=== PATIENT | female | born 1940 | race Caucasian/White ===

== ENCOUNTER 2016-12-16 11:58 | Emergency (ER) | payer MEDICARE ==
[2016-12-16 12:07] VITALS: RESP 18
[2016-12-16] MEDS ORDERED: Sodium Chloride 0.9% 1,000 ML IV ONE (13:09)
[2016-12-16] MEDS ORDERED: Iohexol 240 (50 ml) PO STA (13:09)
[2016-12-16] MEDS ORDERED: Tetracaine 0.5% Ophth 2 ML BOTTLE OD STA (13:11)
--- NOTE | 2016-12-16 13:12 | C.PDOC ---
History Of Present Illness A 76 year old female, whose past medical history includes anemia, gastritis, gall bladder disease, hypertension, hypothyroidism, whose past surgical history includes cholecystectomy (4-5 years ago), presents to the emergency department for left lower quadrant pain and swelling that has been intermittent for last 4 months, but has worsened last night. The patient also complains of right eye redness and itchy discomfort, which began yesterday, but has worsened in redness today. The patient denies any nausea, vomiting, diarrhea, fever, dysuria , or any other complaints at this time. Time Seen by Provider: 12/16/16 12:44 Chief Complaint (Nursing): Abdominal Pain History Per: Patient History/Exam Limitations: no limitations Onset/Duration Of Symptoms: Days (x yesterday ) Current Symptoms Are (Timing): Still Present Location Of Pain/Discomfort: LLQ Associated Symptoms: denies: Nausea, Vomiting, Diarrhea, Urinary Symptoms Past Medical History Reviewed: Historical Data, Nursing Documentation, Vital Signs Vital Signs: Last Vital Signs Temp 97.6 F 12/16/16 18:33 Pulse 79 12/16/16 18:33 Resp 18 12/16/16 18:33 BP 147/78 12/16/16 18:33 Pulse Ox 98 12/16/16 19:05 - Medical History PMH: Anemia, Gastritis, Gall Bladder Disease, HTN, Hypothyroidism Denies: Chronic Kidney Disease Surgical History: Cholecystectomy (5 years ago) Family History: States: Unknown Family Hx - Social History Hx Tobacco Use: No Hx Alcohol Use: No Hx Substance Use: No - Immunization History Hx Tetanus Toxoid Vaccination: No Hx Influenza Vaccination: No Hx Pneumococcal Vaccination: No Review Of Systems Except As Marked, All Systems Reviewed And Found Negative. Constitutional: Negative for: Fever Eyes: Positive for: Redness (right eye ). Negative for: Pain, Vision Change, Conjunctivae Inflammation, Eyelid Inflammation Gastrointestinal: Positive for: Abdominal Pain (LLQ pain ). Negative for: Nausea, Vomiting, Diarrhea Genitourinary: Negative for: Dysuria Physical Exam - Physical Exam Appears: Well, Non-toxic, No Acute Distress Skin: Normal Color, Warm, Dry Head: Atraumatic, Normacephalic Eye(s): bilateral: Normal Inspection (pressures L:17, right 18. ), PERRL, EOMI, right: Other (redness) Ear(s): Bilateral: Normal Nose: Normal Oral Mucosa: Moist Tongue: Normal Appearing Lips: Normal Appearing Neck: Normal, Normal ROM Cardiovascular: Rhythm Regular Respiratory: Normal Breath Sounds Gastrointestinal/Abdominal: Normal Exam, Tenderness (mild tenderness to the left lower quadrant ) Back: Normal Inspection Extremity: Normal ROM Neurological/Psych: Oriented x3, Normal Speech, Normal Cognition ED Course And Treatment - Laboratory Results Result Diagrams: 12/16/16 13:21 12/16/16 13:21 Lab Interpretation: No Acute Changes O2 Sat by Pulse Oximetry: 98 Pulse Ox Interpretation: Normal - CT Scan/US Abdominal CT Other Rad Studies (CT/US): Read By Radiologist, Radiology Report Reviewed CT/US Interpretation: Impression: No evidence of mass lesion in the large bowel. No evidence of actue pathology in the abdomen and pelvis. Reassessment Condition: Improved (on re-evaluation abdominal pain resolved) Medical Decision Making Medical Decision Making: Impression: A 76 year old female with abdominal pain. Treatment Plan: -- ABD & PELVIS CT -- Labs -- Iohexol, Pepcid, IV Fluids, Tateacaine, Acetaminophen -- Urinalysis CT normal, pain resolved, f/u pmd and human resources representative Disposition Counseled Patient/Family Regarding: Studies Performed, Diagnosis, Need For Followup, Rx Given - Disposition Referrals: Naveed Love MD [Staff Provider] - Non [facility] Provider, [Non-Staff] - Disposition: HOME/ ROUTINE Disposition Time: 18:08 Condition: STABLE Additional Instructions: FOLLOW UP WITH YOUR PMD AND KETTLE FRY COOK OPERATOR ON SUNDAY. TAKE TYLENOL 500 MG EVERY 4-6 HRS NEEDED FOR PAIN. IF SYMPTOMS GET WORSE OR ANY NEW CONCERNING SYMPTOMS DEVELOP RETURN TO ED. Prescriptions: Ciprofloxacin 0.3% [Ciloxan 0.3% Ophth SOLN] 2 drop RIGHTEYE Q4H #1 bottle Instructions: Abdominal Pain (ED), Conjunctivitis (ED) Forms: [facility] (Maori), General Discharge Instructions - Clinical Impression Clinical Impression: Conjunctivitis, Abdominal pain - Scribe Statement The provider has reviewed the documentation as recorded by the Scribe Abril Chester All medical record entries made by the Scribe were at my direction and personally dictated by me. I have reviewed the chart and agree that the record accurately reflects my personal performance of the history, physical exam, medical decision making, and the department course for this patient. I have also personally directed, reviewed, and agree with the discharge instructions and disposition.
[2016-12-16 13:25] LABS: BASO % 0.6 % (0.0-2.0); EOS # 0.1 K/uL (0.0-0.7); EOS % 1.7 % (0.0-4.0); LYMPH % 26.6 % (20.0-40.0); MEAN CORPUSCULAR HGB CONC 33.9 g/dL (33.0-37.0); MEAN PLATELET VOLUME 7.6 fL (7.2-11.7); MONO # 0.8 K/uL (0.0-0.8); MONO % 10.1 % (0.0-10.0); NRBC % 0.1 % (0.0-2.0); RED CELL DISTRIBUTION WIDTH 14.1 % (11.5-14.5); WHITE BLOOD COUNT 7.6 K/uL (4.8-10.8)
[2016-12-16 13:27] LABS: MEAN CELL VOLUME 88.5 fL (81.0-99.0)
[2016-12-16] MEDS ORDERED: Sodium Chloride 0.9% 1,000 ML ONE (13:30)
[2016-12-16] MEDS ORDERED: Iohexol 240 (50 ml) ONE (13:34)
[2016-12-16 13:35] LABS: CHLORIDE 102 mmol/L (98-107); POTASSIUM 3.8 mmol/L (3.6-5.2); SODIUM 138 mmol/L (132-148)
[2016-12-16 13:37] LABS: GFR AFRICAN-AMERICAN > 60
[2016-12-16 13:38] LABS: ALKALINE PHOSPHATASE 68 U/L (38-126); ALT/SGPT 32 U/L (9-52); AST/SGOT 25 U/L (14-36); BILIRUBIN,TOTAL 0.7 mg/dL (0.2-1.3); BLOOD UREA NITROGEN 17 mg/dL (7-17); CALCIUM 9.9 mg/dl (8.6-10.4); CARBON DIOXIDE 26 mmol/L (22-30); GLUCOSE,RANDOM 79 mg/dL (65-105)
[2016-12-16 13:39] LABS: RBC URINE < 1 /hpf (0-3); URINE BACTERIA RARE (<OCC); URINE BILIRUBIN NEGATIVE (NEGATIVE); URINE BLOOD 1+ (NEGATIVE); URINE COLOR Yellow (YELLOW); URINE GLUCOSE (UA) NORMAL (Normal); URINE KETONE NEGATIVE (NEGATIVE); URINE LEUKOCYTE ESTERASE NEG Leu/uL (Negative); URINE PROTEIN NEGATIVE (NEGATIVE); URINE UROBILINOGEN NORMAL mg/dL (0.2-1.0); WBC URINE < 1 /hpf (0-5)
[2016-12-16] MEDS ORDERED: Tetracaine 0.5% Ophth (OR ONLY) ONE (13:40)
[2016-12-16] MEDS ORDERED: Iodixanol 320 MG/ML 100 ML BOTTLE IV ONE (14:57)
--- NOTE | 2016-12-16 15:54 | CT ---
PROCEDURE: CT Abdomen and Pelvis with contrast HISTORY: abdominal pain COMPARISON: Comparison is made to the previous exam dated 04/02/2015 TECHNIQUE: Contrast dose: 100 mL of Visipaque 320. Axial and reformatted coronal and sagittal CT images of the abdomen and pelvis were obtained after IV and oral contrast administration. Radiation dose: Total exam DLP = 390.25 mGy-cm. This CT exam was performed using one or more of the following dose reduction techniques: Automated exposure control, adjustment of the mA and/or kV according to patient size, and/or use of iterative reconstruction technique. FINDINGS: LOWER THORAX: Small linear opacity seen at the left lung base again likely represent scar tissue. No evidence of pneumonia or pleural effusion. The heart is mildly enlarged. LIVER: No evidence of significant interval change in the liver since the previous exam. Mild intrahepatic biliary ductal dilatation is again noted GALLBLADDER AND BILE DUCTS: . Status post cholecystectomy. The common bile duct is mildly dilated. PANCREAS: Unremarkable. No gross lesion or ductal dilatation. SPLEEN: Unremarkable. ADRENALS: Unremarkable. No mass. KIDNEYS AND URETERS: Unremarkable. No hydronephrosis. No solid mass. VASCULATURE: Unremarkable. No aortic aneurysm. BOWEL: There is distal gastric wall thickening noted. Correlate clinically for gastritis. The large bowel is not opacified with the oral contrast. Questionable focal thickening at the cecum versus artifact. No evidence of bowel obstruction. Mild thickening of the proximal small bowel loops may represent enteritis. APPENDIX: No evidence of appendicitis. PERITONEUM: Unremarkable. No free fluid. No free air. LYMPH NODES: Unremarkable. No enlarged lymph nodes. BLADDER: Unremarkable. REPRODUCTIVE: Unremarkable. BONES: Diffuse osteopenia and degenerative changes are again noted. OTHER FINDINGS: None. IMPRESSION: [id number] distal gastric wall thickening suspicious for gastritis. Questionable mass or focal thickening at the cecum versus incomplete distention and artifact. If clinically warranted delayed images of the abdomen after opacification of the large bowel by oral contrast may be obtained. Otherwise no significant interval change when compared to the previous study dated 04/02/2015.
--- NOTE | 2016-12-16 17:19 | RAD ---
HISTORY: abdominal pain COMPARISON: December 16, 2016. CT abdomen and pelvis FINDINGS: BOWEL: Contrast in nondistended colon and small bowel from recent CT scan. BONES: Normal. OTHER FINDINGS: Contrast in urinary bladder from recent CT scan. IMPRESSION: No acute findings related to/accounting for the clinical presentation.
--- NOTE | 2016-12-16 17:58 | CT ---
PROCEDURE: CT Abdomen and Pelvis with Oral contrast. HISTORY: abdominal pain follow-up of scan done on the same day to evaluate the large bowel. COMPARISON: Comparison is made to the previous same-day exam. TECHNIQUE: Contiguous axial images of the abdomen and pelvis. Oral contrast was administered. No IV contrast given. Coronal and Sagittal reformats generated. Radiation dose: Total exam DLP = 401.69 mGy-cm. This CT exam was performed using one or more of the following dose reduction techniques: Automated exposure control, adjustment of the mA and/or kV according to patient size, and/or use of iterative reconstruction technique. FINDINGS: LOWER THORAX: Re- demonstration of scar tissue at the left lower lobe. LIVER: Unremarkable. No gross lesion or ductal dilatation. GALLBLADDER AND BILE DUCTS: Status post cholecystectomy. PANCREAS: Unremarkable. No mass. No ductal dilatation. SPLEEN: Unremarkable. No splenomegaly. ADRENALS: Unremarkable. KIDNEYS AND URETERS: Unremarkable. No stone or hydronephrosis. BLADDER: Mild urinary bladder wall thickening is noted. REPRODUCTIVE: Unremarkable. APPENDIX: No evidence of appendicitis BOWEL: No evidence of mass lesion in the large bowel. Few colonic diverticulosis seen without evidence of diverticulitis. No evidence of small bowel obstruction. PERITONEUM: Unremarkable. No fluid collection. No free air. LYMPH NODES: Unremarkable. No enlarged lymph nodes. VASCULATURE: Unremarkable. No aortic aneurysm. BONES: Diffuse osteopenia is again noted. OTHER FINDINGS: None. IMPRESSION: No evidence of mass lesion in the large bowel. No evidence of acute pathology in the abdomen and pelvis.
[2016-12-16 18:34] VITALS: BP 147/78; PULSE 79; TEMP 97.6
[2016-12-16 19:03] VITALS: O2SAT 98
== END 2016-12-16 18:30 | disposition home or self-care (01) ==
LOC: C.ER 11:58
DX: R10.32 Left lower quadrant pain (principal); H10.9 Unspecified conjunctivitis
CPT/HCPCS: 74000; 74176; 74177; 80053; 81001; 83690; 85025; 96361; 96374; 99285; J7040; Q9966; Q9967

== ENCOUNTER 2017-10-05 20:06 | Emergency (ER) | payer MEDICARE ==
[2017-10-05 20:13] VITALS: O2SAT 97
--- NOTE | 2017-10-05 20:23 | C.PDOC ---
History Of Present Illness 77 yo female BIBA for evaluation of Right side body pain developed DINKEY BRAKEMAN after sustained mechanical fall at [employer]. Pt reports, " slept and fell down onto Right side of body". Pt reports, lower back pain now radiating down to Right hip and leg area, worse with ambulation. Pt denies head injury, LOC, syncope, headache, dizziness, vertigo, neck pain, CP, SOB, dyspnea, diaphoresis , palpitation, abd. pain, N/V, denies saddle anesthesia, incontinence, denies obvious deformity, weakness, sensory or vascular deficits to B/L UEs and LEs. At the time of evaluation, pt appears comfortable, not in any apparent distress. Time Seen by Provider: 10/05/17 20:08 Chief Complaint (Nursing): Hip Pain Past Medical History Vital Signs: Last Vital Signs Temp 97.6 F 10/05/17 22:30 Pulse 100 H 10/05/17 22:30 Resp 20 10/05/17 22:30 BP 151/82 H 10/05/17 22:30 Pulse Ox 97 10/05/17 22:30 - Medical History PMH: Anemia, Gastritis, Gall Bladder Disease, HTN, Hypothyroidism Denies: Chronic Kidney Disease Surgical History: Cholecystectomy (5 years ago) Family History: States: Unknown Family Hx - Social History Hx Tobacco Use: No Hx Alcohol Use: No Hx Substance Use: No - Immunization History Hx Tetanus Toxoid Vaccination: No Hx Influenza Vaccination: No Hx Pneumococcal Vaccination: No Physical Exam - Physical Exam Appears: Well, Non-toxic, No Acute Distress Skin: Normal Color, Warm, Dry, No Rash, No Ecchymosis Head: Atraumatic, Normacephalic Eye(s): bilateral: PERRL Ear(s): Bilateral: Normal Nose: No Flaring, No Discharge, No Deformity, No Tenderness Oral Mucosa: Moist Tongue: Normal Appearing Lips: Normal Appearing Throat: No Drooling Neck: Normal ROM, Trachea Midline, No Midline Cervical Tenderness, No Paracervical Tenderness, No Step Off Deformity, Supple Chest: Symmetrical, No Deformity, No Tenderness Cardiovascular: Rhythm Regular, No Murmur, No JVD Respiratory: No Decreased Breath Sounds, No Accessory Muscle Use, No Stridor, No Wheezing Gastrointestinal/Abdominal: Soft, No Tenderness, No Distention, No Guarding Back: No CVA Tenderness, No Vertebral Tenderness, Paraspinal Tenderness ( diffuse lumbar R>L, no ecchymoses, no palpable deformity.) Extremity: Normal ROM (B/L UEs and LLE. Mild discomfort to Right hip FAROM due to pain. NO neurovascular deficits.), Tenderness (mild over Right hip area. No Right leg shortening, no ecchymoses, no palpable deformity.), No Pedal Edema, No Deformity, No Swelling Neurological/Psych: Oriented x3, Normal Speech, Normal Motor, Normal Sensation, Normal Reflexes ED Course And Treatment O2 Sat by Pulse Oximetry: 97 Pulse Ox Interpretation: Normal - Other Rad Pelvis with Right hip X-Ray: Interpreted by Me, Viewed By Me Interpretation: (+) DJD, no acute fx - CT Scan/US CT L-spine Other Rad Studies (CT/US): Radiology Report Reviewed CT/US Interpretation: EXAM: CT Lumbar Spine Without Intravenous Contrast. EXAM DATE/TIME: Examination ordered 10/05/2017 8:19 PM. Image number total count reviewed [id number]. CLINICAL HISTORY: The patient is 77 years old and is female; Pain and injury or trauma; Fall; Initial encounter; Sprain or. strain, lumbar ligaments; Low back pain Facility exam id and description: Ct_lumbs lumbar spine w/o. contrast. TECHNIQUE: Axial computed tomography images of the lumbar spine without intravenous contrast. All CT scans at. this facility use at least one of these dose optimization techniques: automated exposure control; mA. and/or kV adjustment per patient size (includes targeted exams where dose is matched to clinical. indication); or iterative reconstruction. Coronal and sagittal reformatted images were created and reviewed. COMPARISON: No relevant prior studies available. FINDINGS: VERTEBRAE: Straightening of the lumbar spine with degenerative changes through the lumbar. spine with osteophyte formation. No acute fracture. DISCS/SPINAL CANAL/NEURAL FORAMINA: See above. SOFT TISSUES: Unremarkable. VASCULATURE: Atherosclerosis. IMPRESSION: Straightening of the lumbar spine with degenerative changes through the lumbar spine with. osteophyte formation. Thank you for allowing us to participate in the care of your patient. Dictated and Authenticated by: Kyaw Da Silva MD. 10/05/2017 9:11 PM Eastern Time ([place] & [place]) Progress Note: On re-evaluation, pt is afebrile, hemodynamicaly stable. Non- toxic. Ambulatory in ED with baseline gait. PulsEOx 97% RA. Head: AT/NC. ENT : no acute findings. Neck: Supple, (-) midline tenderness, (-) JVD. Lungs: CTA B/L, BS dequal B/L. CVS: (+)S1S2, reg. Abd: benign. Neurologicaly intact. Right hip and pelvis review (+) DJD , no acute fx. L-spine CT review ( -) acute fx or sublux. Pt has clinical findings c/w Right sided lower back strain, Right lumbar radiculopathy. Pt advised on course of ds. ref. to f/u with PMD in 2-3 days for re-evaluation. return to ED if any worsening or new changes. Disposition Counseled Patient/Family Regarding: Studies Performed, Diagnosis, Need For Followup, Rx Given - Disposition Referrals: [facility] [Outside] Montana Orellana MD [Staff Provider] - Ady Wilson III, MD [Staff Provider] - Disposition: HOME/ ROUTINE Disposition Time: 22:06 Condition: STABLE Additional Instructions: Bedrest for 2-3 days Avoid prolong walking, bend forwards any physical activity for 1 week Take pain medication as prescribed Follow up with PMD, Orthopedist in 2-3 days for re-evaluation. Return to ED if any worsening or new changes. Prescriptions: Gabapentin [Neurontin] 300 mg PO HS #7 cap Ibuprofen [Motrin] 1 tab PO TID PRN #30 tab PRN Reason: Pain Methocarbamol [Robaxin] 500 mg PO TID #14 tab Instructions: Radiculopathy, Lumbar Muscle Strain (DC) Forms: [employer] (Hebrew) - Clinical Impression Clinical Impression: Lower back injury, Lumbar radiculopathy
[2017-10-05 22:31] VITALS: BP 151/82; PULSE 100; RESP 20; TEMP 97.6
--- NOTE | 2017-10-06 08:43 | CT ---
Date of service: 10/05/2017 PROCEDURE: CT Lumbar Spine without contrast HISTORY: injury COMPARISON: None. TECHNIQUE: Axial computed tomography images were obtained of the lumbar spine without the use of intravenous contrast. Coronal and sagittal reformatted images were created and reviewed. Radiation dose: Total exam DLP = 490.82 mGy-cm. This CT exam was performed using one or more of the following dose reduction techniques: Automated exposure control, adjustment of the mA and/or kV according to patient size, and/or use of iterative reconstruction technique. FINDINGS: VERTEBRAE: There is a straightening of the lumbar spine which could be due to muscle spasm. Mild to moderate osteopenic changes are noted. DISCS/SPINAL CANAL/NEURAL FORAMINA: L1-2: Unremarkable. L2-3: Unremarkable. L3-4: There is a small posterior disc bulging associated with posterior ligament and facet joint hypertrophy which resulting in mild spinal and neural foraminal narrowing. L4-5: Moderate size disc herniation associated with posterior ligament and facet joint hypertrophy which resulting in moderate spinal and mild bilateral neural foraminal narrowing. L5-S1: Unremarkable. PARASPINAL SOFT TISSUES: Unremarkable. OTHER FINDINGS: None. IMPRESSION: No evidence of acute fracture or subluxation. Degenerative changes. Moderate size disc bulging/herniation at L4-L5 associated with posterior ligament and facet joint hypertrophy which resulting in moderate spinal and mild bilateral neural foraminal narrowing. Preliminary report was submitted by [facility]
--- NOTE | 2017-10-06 11:18 | RAD ---
PROCEDURE: Right Hip Radiographs. HISTORY: injury COMPARISON: None. FINDINGS: BONES: Normal. No fracture. JOINTS: Moderate degenerative changes CT head joints. SOFT TISSUES: Normal. OTHER FINDINGS: None. IMPRESSION: No evidence of acute fracture or dislocation.
== END 2017-10-05 22:39 | disposition home or self-care (01) ==
LOC: C.ER 20:06
DX: M54.16 Radiculopathy, lumbar region (principal); S39.92XA Unspecified injury of lower back, initial encounter; W01.0XXA Fall on same level from slipping, tripping and stumbling without subsequent striking against object, initial encounter; Y92.511 Restaurant or cafe as the place of occurrence of the external cause

== ENCOUNTER 2017-11-11 21:37 | Emergency (ER) | payer MEDICARE ==
[2017-11-11 22:04] VITALS: BP 151/84; PULSE 77; RESP 20; TEMP 97.5; O2SAT 99
[2017-11-11 22:42] LABS: BASO # 0.1 K/uL (0.0-0.2); BASO % 0.7 % (0.0-2.0); EOS # 0.1 K/uL (0.0-0.7); EOS % 1.5 % (0.0-4.0); HEMOGLOBIN 11.2 g/dL (11.0-16.0); LYMPH # 2.2 K/uL (1.0-4.3); MEAN CELL VOLUME 89.9 fL (81.0-99.0); MEAN CORPUSCULAR HEMOGLOBIN 30.1 pg (27.0-31.0); MEAN CORPUSCULAR HGB CONC 33.5 g/dL (33.0-37.0); MONO # 0.6 K/uL (0.0-0.8); MONO % 7.4 % (0.0-10.0); NEUT # 5.2 K/uL (1.8-7.0); NEUT % 63.4 % (50.0-75.0); RBC 3.7 Mil/uL (3.80-5.20); RED CELL DISTRIBUTION WIDTH 14.9 % (11.5-14.5); WHITE BLOOD COUNT 8.2 K/uL (4.8-10.8)
--- NOTE | 2017-11-11 23:05 | C.PDOC ---
History Of Present Illness 77 year old female presents to the ER with a complaint of an itchy rash to the bilateral lower legs for the past one day. Patient states she thinks she might have been bitten by a fly. Denies leg pain, weakness, numbness, previous rash to the areas, use of blood thinners, or trauma. Time Seen by Provider: 11/11/17 22:04 Chief Complaint (Nursing): Abnormal Skin Integrity History Per: Patient History/Exam Limitations: no limitations Onset/Duration Of Symptoms: Days Current Symptoms Are (Timing): Still Present Location Of Injury: Right: Leg, Left: Leg Quality Of Symptoms: Itching Recent travel outside of the [place]: No Past Medical History Reviewed: Historical Data, Nursing Documentation, Vital Signs Vital Signs: Last Vital Signs Temp 97.5 F L 11/11/17 21:59 Pulse 77 11/11/17 21:59 Resp 20 11/11/17 21:59 BP 151/84 H 11/11/17 21:59 Pulse Ox 99 11/12/17 02:31 - Medical History PMH: Anemia, Gastritis, Gall Bladder Disease, HTN, Hypothyroidism Denies: Chronic Kidney Disease Surgical History: Cholecystectomy (5 years ago) Family History: States: Unknown Family Hx - Social History Hx Tobacco Use: No Hx Alcohol Use: No Hx Substance Use: No - Immunization History Hx Tetanus Toxoid Vaccination: No Hx Influenza Vaccination: No Hx Pneumococcal Vaccination: No Review Of Systems Musculoskeletal: Negative for: Leg Pain Skin: Positive for: Rash Neurological: Negative for: Weakness, Numbness Physical Exam - Physical Exam Appears: Non-toxic Skin: Warm, Dry Head: Atraumatic, Normacephalic Eye(s): bilateral: Normal Inspection Oral Mucosa: Moist Extremity: No Calf Tenderness (or swelling), Capillary Refill (<2 seconds), Other (Dry scaly purpuric to distal aspect of bilateral legs, greater anteriorly. No warmth, erythema, or vesicles. Minimal swelling to bilateral ankles.) Pulses: Left Dorsalis Pedis: Normal, Right Dorsalis Pedis: Normal Neurological/Psych: Oriented x3, Normal Speech, Normal Motor, Normal Sensation Gait: Steady ED Course And Treatment - Laboratory Results Result Diagrams: 11/11/17 22:39 O2 Sat by Pulse Oximetry: 99 (Room air) Pulse Ox Interpretation: Normal Progress Note: Blood work ordered, results were negative. Rash appears to be chronic, patient advised to use steroid cream and zyrtec for itching and follow up with PMD. Disposition Counseled Patient/Family Regarding: Diagnosis, Need For Followup, Rx Given - Disposition Disposition: HOME/ ROUTINE Disposition Time: 23:03 Condition: STABLE Additional Instructions: Please follow up with PMD Use medications as directed Leg elevation Return to ER if worse Prescriptions: Cetirizine HCl [Zyrtec] 10 mg PO DAILY #10 capsule Hydrocortisone 1% Cream [Cortizone 1% Cream] 1 appl TP BID #1 tube Instructions: Skin Rash (DC) Forms: [employer] ([place] Islander) - Clinical Impression Clinical Impression: Rash, skin - PA / [facility] TECHNICIAN / Resident Statement MD/DO has reviewed & agrees with the documentation as recorded. - Scribe Statement The provider has reviewed the documentation as recorded by the Scriblakesha Martinez All medical record entries made by the Aciblakesha were at my direction and personally dictated by me. I have reviewed the chart and agree that the record accurately reflects my personal performance of the history, physical exam, medical decision making, and the department course for this patient. I have also personally directed, reviewed, and agree with the discharge instructions and disposition.
== END 2017-11-11 23:22 | disposition home or self-care (01) ==
LOC: C.ER 21:37
DX: R21 Rash and other nonspecific skin eruption (principal); I10 Essential (primary) hypertension; E03.9 Hypothyroidism, unspecified